=== PATIENT | female | born 1930 | race Caucasian/White ===

== ENCOUNTER 2018-02-25 12:15 | Emergency (ER) | payer MEDICARE ==
[~2018-02-25] VITALS: Ht 160 cm; Wt 70.3 kg
[~2018-02-25 12:15] MED LIST: ENOX100I SQ; WARF5 PO
[2018-02-25] MEDS ORDERED: Norco 5-325 Ta1 EACH PO (13:32)
[2018-02-25] MEDS ORDERED: Colace100 MG PO (13:34)
[2018-02-25] MEDS ORDERED: NEBI5 PO (13:39)
[2018-02-25] MEDS ORDERED: SIMV10 PO (13:39)
[2018-02-25] MEDS ORDERED: CLOP75 PO (13:39)
[2018-02-25] MEDS ORDERED: ALBU90OI INH (13:40)
[2018-02-25] MEDS ORDERED: ASPI325 PO (13:40)
== END 2018-02-25 13:48 | disposition home or self-care (01) ==
LOC: ER 12:15
DX: M79.604 Pain in right leg (principal); Z79.899 Other long term (current) drug therapy; Z79.82 Long term (current) use of aspirin; I25.10 Atherosclerotic heart disease of native coronary artery without angina pectoris; E78.5 Hyperlipidemia, unspecified
CPT/HCPCS: 99282

== ENCOUNTER 2018-03-01 09:51 | Emergency (ER) | payer MEDICARE ==
[~2018-03-01] VITALS: Ht 160 cm; Wt 68.0 kg
[~2018-03-01 09:51] MED LIST changes: +ALBU90OI INH; +ASPI325 PO; +CLOP75 PO; +Colace100 MG PO; +NEBI5 PO; +Norco 5-325 Ta1 EACH PO; +SIMV10 PO
[2018-03-01 14:52] LABS: Source, Urine Clean Catch
[2018-03-01 14:58] LABS: Appearance, Urine Clear (Clear); Bilirubin, Urine Neg (Neg); Blood, Urine 1+ (Neg); Color, Urine Yellow (P-Yellow); Glucose Qualitative, Urine Neg (Neg); Ketones, Urine Neg (Neg); Leukocyte Esterase, Urine 3+ (Neg); Nitrite, Urine Neg (Neg); Protein, Urine Neg (Neg); Urobilinogen, Urine NORM (Normal); pH, Urine 6.5 (5.0-8.0)
[2018-03-01 15:08] LABS: Bacteria Few /hpf; Squamous Epithelial Cells Few /hpf (Few)
[2018-03-01] MEDS ORDERED: Norco 5-325 Ta1 EACH PO (15:31)
[2018-03-01] MEDS ORDERED: CEPH500 PO (15:31)
[2018-03-01] MEDS ORDERED: ULTRA-LIGHT RO1 EACH MC (15:32)
== END 2018-03-01 16:01 | disposition home or self-care (01) ==
LOC: ER 09:51
PROVIDERS: Physician Assistant
DX: M25.561 Pain in right knee (principal); M25.551 Pain in right hip; N39.0 Urinary tract infection, site not specified; R26.81 Unsteadiness on feet; Z79.899 Other long term (current) drug therapy; Z79.82 Long term (current) use of aspirin; Z79.2 Long term (current) use of antibiotics
CPT/HCPCS: 71046; 73502; 73562-RT; 81001; 87086; 99283

== ENCOUNTER 2018-03-07 09:04 | Observation (INO) | payer MEDICARE ==
[~2018-03-07] VITALS: Ht 160 cm; Wt 60.9 kg
[~2018-03-07 09:04] MED LIST changes: +CEPH500 PO; +ULTRA-LIGHT RO1 EACH MC
[2018-03-07] MEDS ORDERED: ASPI81CH PO (09:32)
[2018-03-07] MEDS ORDERED: Bystolic2.5 MG PO (13:00)
[2018-03-07] MEDS ORDERED: DOCU100 PO (13:01)
[2018-03-08] MEDS ORDERED: LIDO700A20 TOP (17:09)
== END 2018-03-08 17:52 | disposition home or self-care (01) ==
LOC: ER 09:04 → MEDS 09:05
DX: R26.9 Unspecified abnormalities of gait and mobility (principal); M79.604 Pain in right leg; M25.551 Pain in right hip; M81.0 Age-related osteoporosis without current pathological fracture; M51.36 Other intervertebral disc degeneration, lumbar region; M48.061 Spinal stenosis, lumbar region without neurogenic claudication; M43.16 Spondylolisthesis, lumbar region; E78.5 Hyperlipidemia, unspecified; I25.10 Atherosclerotic heart disease of native coronary artery without angina pectoris; Z79.02 Long term (current) use of antithrombotics/antiplatelets; Z79.82 Long term (current) use of aspirin; Z95.5 Presence of coronary angioplasty implant and graft; Z79.899 Other long term (current) drug therapy
CPT/HCPCS: 72148; 72192; 96372; 96374; 97162; 97530; 99285; C9113; G0378; G8978; G8979; J1650

== ENCOUNTER 2018-04-13 | Day surgery (SDC) | END 2018-04-13 13:04 | disposition home or self-care (01) ==